=== PATIENT | female | born 1985 | race Caucasian/White ===

== ENCOUNTER 2024-05-28 11:25 | Day surgery (SDC) | payer BC ==
[2024-05-28 12:11] VITALS: BMI 24.9
[2024-05-28] MEDS ORDERED: Ondansetron PF 4 MG/2 ML Vial IVP PRN (12:13)
[2024-05-28] MEDS ORDERED: Lactated Ringer's 500 ML IV SCH (12:15)
== END 2024-05-28 14:43 | disposition home health service (06) ==
LOC: CSHLD/OP 11:25
PROVIDERS: ATTEND Obstetrics & Gynecology
DX: O26.40 Herpes gestationis, unspecified trimester (principal); O09.529 Supervision of elderly multigravida, unspecified trimester; O99.340 Other mental disorders complicating pregnancy, unspecified trimester; F41.9 Anxiety disorder, unspecified; F90.9 Attention-deficit hyperactivity disorder, unspecified type; F32.A Depression, unspecified; O99.619 Diseases of the digestive system complicating pregnancy, unspecified trimester; K58.9 Irritable bowel syndrome, unspecified; Z88.0 Allergy status to penicillin; Z88.6 Allergy status to analgesic agent; Z91.018 Allergy to other foods; Z79.899 Other long term (current) drug therapy; Z3A.00 Weeks of gestation of pregnancy not specified
CPT/HCPCS: 96360; 99283

== ENCOUNTER 2024-06-08 17:28 | Day surgery (SDC) | payer BC ==
[2024-06-08 17:54] VITALS: BMI 25.1
[2024-06-08] MEDS ORDERED: hydrALAZINE 20 MG/ML VIAL SLOW IVP PRN (18:04)
[2024-06-08] MEDS ORDERED: Lactated Ringer's 1,000 ML IV SCH (20:45)
[2024-06-08 21:37] LABS: #Basophils 0.02 10x3/uL (0.0-0.2); #Eosinophils 0.03 10x3/uL (0.0-0.5); #Monocytes 0.44 10x3/uL (0.0-1.1); #Neutrophils 6.99 10x3/uL (1.5-8.4); %Basophils 0.2 % (0.0-2.0); %Eosinophils 0.3 % (0.0-6.0); %Lymphocytes 12.6 % (18.0-47.0); %Monocytes 5.1 % (0.0-10.0); %Neutrophils 81.2 % (40.0-75.0); Hematocrit 32.7 % (34.9-44.5); Mean Corpuscular HGB CONC 33.6 g/dL (32.0-36.0); Mean Corpuscular Hemoglobin 29.6 pg (27.0-33.0); Mean Corpuscular Volume 88.1 fL (81.6-98.3); Mean Platelet Volume 10.6 fL (7.4-10.4); Platelet Count 222 10x3/uL (150-450); RBC Distribution Width 13.2 % (11.5-14.5); Red Blood Cell (RBC) Count 3.71 10x6/uL (3.90-5.03); White Blood Cell (WBC) Count 8.6 10x3/uL (3.5-10.5)
[2024-06-08 21:53] LABS: ALT (SGPT) 15 U/L (8-55); AST (SGOT) 17 U/L (5-34); Albumin 2.9 g/dL (3.5-5.0); Alkaline Phosphatase 158 U/L (40-110); Anion Gap 15 mmol/L (10-20); BUN (Urea Nitrogen) 7 mg/dL (7.0-18.7); Bilirubin, Total 0.3 mg/dL (0.2-1.2); Calc. Creatinine Clearance 121 mL/min (70-130); Calcium 9.4 mg/dL (7.8-10.44); Carbon Dioxide 19 mmol/L (22-29); Chloride 109 mmol/L (98-107); Estimated GFR 101; Globulin 3.4 g/dL (2.4-3.5); Glucose 81 mg/dL (70-105); Potassium 3.8 mmol/L (3.5-5.1); Protein, Total 6.3 g/dL (6.0-8.3); Sodium 139 mmol/L (136-145)
[2024-06-08 22:20] LABS: Bilirubin Neg (Negative); Blood, Urine Negative (Negative); Clarity Clear (Clear); Glucose, Urine (Dipstick) Normal (Negative); Ketone, Urine 5 mg/dL (Negative); Leukocyte Negative (Negative); Nitrite Negative (Negative); Protein, Urine (Dipstick) 15 mg/dl (Neg-Trace); Specific Gravity, Urine 1.015 (1.005-1.030); Urobilinogen Normal mg/dL (Less than 2)
[2024-06-08 22:57] LABS: Bacteria/HPF 1+ HPF (None Seen); CAUTI Indications for Culture Pregnancy; RBC/HPF 0-3 HPF (0-3); Urine Culture Reflex No No; Urine Culture Reflex Yes Yes; WBC/HPF 0-3 HPF (0-3)
[2024-06-08] MEDS: Morphine 4 MG/ML VIAL IM SCH (23:51)
== END 2024-06-09 00:45 | disposition home or self-care (01) ==
LOC: CSHLD/OP 17:28
PROVIDERS: ATTEND Obstetrics & Gynecology
DX: O47.1 False labor at or after 37 completed weeks of gestation (principal); O98.313 Other infections with a predominantly sexual mode of transmission complicating pregnancy, third trimester; O99.343 Other mental disorders complicating pregnancy, third trimester; F41.9 Anxiety disorder, unspecified; F32.A Depression, unspecified; O99.283 Endocrine, nutritional and metabolic diseases complicating pregnancy, third trimester; E86.0 Dehydration; Z79.899 Other long term (current) drug therapy; Z88.0 Allergy status to penicillin; Z88.8 Allergy status to other drugs, medicaments and biological substances; Z3A.37 37 weeks gestation of pregnancy
CPT/HCPCS: 36415; 76819; 80053; 81001; 85025; 87086; J2272

== ENCOUNTER 2024-06-19 02:35 | Inpatient (IN) | payer BC ==
[2024-06-19] MEDS ORDERED: Lactated Ringer's 1,000 ML IV SCH ×2 (02:45→02:57)
[2024-06-19] MEDS ORDERED: hydrALAZINE 20 MG/ML VIAL SLOW IVP SCH (02:57)
[2024-06-19] MEDS ORDERED: Acetaminophen 500 MG TAB PO SCH (04:30)
[2024-06-19] MEDS ORDERED: fentaNYL 50 mcg/mL 1 mL Vial SLOW IVP SCH ×2 (04:30→07:17)
[2024-06-19] MEDS ORDERED: fentaNYL 50 mcg/mL 1 mL Vial ONE ×2 (04:38→04:45)
[2024-06-19] MEDS ORDERED: Acetaminophen 500 MG TAB ONE ×3 (04:38→18:15)
[2024-06-19] MEDS ORDERED: Cyclobenzaprine 10 MG TAB PO SCH (07:17)
[2024-06-19] MEDS ORDERED: diphenhydrAMINE 50 MG/ML VIAL IVP SCH (07:17)
[2024-06-19] MEDS ORDERED: Bupivacaine 0.25% HCL 30 ML VIAL ONE (08:00)
[2024-06-19] MEDS ORDERED: Ibuprofen 800 MG TAB PO PRN (08:11)
[2024-06-19] MEDS ORDERED: Lidocaine 1% (PF) 30 ML VIAL SC PRN (08:11)
[2024-06-19] MEDS ORDERED: Oxytocin 30 units/NS 500 ML 500 ML IV SCH (08:11)
[2024-06-19] MEDS ORDERED: fentaNYL 2 mcg/Ropivacaine 0.2% Epidural 100 ML CADD ONE (09:45)
[2024-06-19] MEDS ORDERED: Lanolin Ointment 7 GM TUBE TOP PRN (10:00)
[2024-06-19] MEDS ORDERED: Bisacodyl 10 MG SUPP PR PRN (10:00)
[2024-06-19] MEDS ORDERED: Misoprostol 200 MCG TAB VAG SCH (10:00)
[2024-06-19] MEDS ORDERED: Oxytocin 30 units/NS 500 ML 1,000 ML IV SCH (10:00)
[2024-06-19] MEDS ORDERED: Benzocaine-Menthol 82.5 ML CAN TOP PRN (10:00)
[2024-06-19] MEDS ORDERED: Ondansetron PF 4 MG/2 ML Vial IVP PRN (10:00)
[2024-06-19] MEDS ORDERED: Boostrix 0.5 ML (Tdap) VIAL (>/=7 yrs of age) IM SCH (10:00)
[2024-06-19] MEDS ORDERED: Promethazine HCl 25 MG/ML VIAL IM PRN (10:00)
[2024-06-19] MEDS ORDERED: hydrALAZINE 20 MG/ML VIAL SLOW IVP PRN (10:00)
[2024-06-19] MEDS ORDERED: Methylergonovine 0.2 MG/ML VIAL IM PRN (10:00)
[2024-06-19] MEDS ORDERED: HYDROcodone/Acetaminophen 5/325 mg Tablet PO PRN (10:00)
[2024-06-19] MEDS ORDERED: Preparation H Ointment 28 GM TUBE PR PRN (10:00)
[2024-06-19] MEDS ORDERED: diphenhydrAMINE 25 MG CAP PO PRN (10:00)
[2024-06-19] MEDS ORDERED: Milk Of Magnesia 30 ML UDCUP PO PRN (10:00)
[2024-06-19] MEDS ORDERED: NS w/ Oxytocin 30 units 500 ML BAG ONE (13:05)
[2024-06-19] MEDS ORDERED: Lactated Ringer's 1,000 ML BAG ONE (18:15)
[2024-06-19] MEDS ORDERED: Misoprostol 200 MCG TAB ONE ×2 (21:34→21:40)
[2024-06-19] MEDS ORDERED: Methylergonovine 0.2 MG/ML VIAL ONE ×2 (21:35→21:40)
[2024-06-19 21:51] LABS: Analyzer IN Cardio CS NICU; RapidComm Collect By RN
[2024-06-19 21:52] LABS: Analyzer IN Cardio CS NICU; RapidComm Collect By RN; pH (Cord, venous) 7.277 (7.250-7.350)
[2024-06-19] MEDS ORDERED: Ibuprofen 800 MG TAB ONE (22:25)
[2024-06-19 22:59] LABS: HBsAg Index 0.15 S/CO (0-0.99); Hep B Surf Ag - L&D NonReactive S/CO (NonReactive); Syphilis Antibody Nonreactive (Nonreactive); Syphilis Antibody Index 0.05 S/CO (<1.00 Non-Reactive)
[2024-06-19 23:13] LABS: Hematocrit 35.2 % (34.9-44.5); Hemoglobin 11.6 g/dL (12.0-15.5); Mean Corpuscular Hemoglobin 29.4 pg (27.0-33.0); Mean Corpuscular Volume 89.3 fL (81.6-98.3); Mean Platelet Volume 11.7 fL (7.4-10.4); Platelet Count 226 10x3/uL (150-450); RBC Distribution Width 14.6 % (11.5-14.5); Red Blood Cell (RBC) Count 3.94 10x6/uL (3.90-5.03); White Blood Cell (WBC) Count 9.6 10x3/uL (3.5-10.5)
[2024-06-19 23:14] LABS: Fetal Membranes Rupture No Membranes Rupture (No Rupture)
[2024-06-20] MEDS ORDERED: Ibuprofen 800 MG TAB ONE (06:00)
[2024-06-20] MEDS: Docusate 100 MG CAP PO SCH (08:51)
[2024-06-20] MEDS: Prenatal Vitamin 1 TAB PO SCH (08:51)
[2024-06-20] MEDS ORDERED: Docusate 100 MG CAP ONE (09:00)
[2024-06-20] MEDS: HYDROcodone/Acetaminophen 5/325 mg Tablet PO PRN (09:45)
[2024-06-20] MEDS ORDERED: HYDROcodone/Acetaminophen 5/325 mg Tablet ONE (09:45)
[2024-06-20] MEDS: Ibuprofen 800 MG TAB PO SCH (14:02)
[2024-06-21 08:05] VITALS: BP 114/67; TEMP 97.5
[2024-06-21] MEDS: Ferrous Sulfate 325 MG TAB PO SCH (15:56)
== END 2024-06-21 17:45 | disposition home or self-care (01) | DRG 807 ==
LOC: CSHLD 02:35 → CSHPED 23:58 → UNDODISIN 06-20 13:30
PROVIDERS: ADMIT Obstetrics & Gynecology; ATTEND Obstetrics & Gynecology
PROC: 10E0XZZ Delivery of Products of Conception, External Approach (ICD-10-PCS; principal; 2024-06-19)
PROC: 0HQ9XZZ Repair Perineum Skin, External Approach (ICD-10-PCS; 2024-06-19)
DX: O70.0 First degree perineal laceration during delivery (principal); Z37.0 Single live birth; O62.2 Other uterine inertia; Z3A.39 39 weeks gestation of pregnancy
CPT/HCPCS: 51702; 82805; 84112; 85027; 86762; 86780; 86850; 86900; 86901; 87340; 99285; J0665; J2210; J2590; J3010; J7120